=== PATIENT | male | born 1995 | race Two or more races ===

== ENCOUNTER 2023-09-10 13:00 | Emergency (ER) | payer OTHER ==
[~2023-09-10] VITALS: Ht 162.6 cm; Wt 68.0 kg
[2023-09-10 13:21] VITALS: BP 141/81; TEMP 98.6; O2SAT 98
[2023-09-10] MEDS ORDERED: TDAP [DIPH/PERTUSSIS/TET] 0.5 ML VIAL IM ONE ×2 (15:30→15:48)
== END 2023-09-10 16:12 | disposition home or self-care (01) ==
LOC: ER 13:00
DX: S61.311A Laceration without foreign body of left index finger with damage to nail, initial encounter (principal); W26.8XXA Contact with other sharp object(s), not elsewhere classified, initial encounter; Y93.89 Activity, other specified; Y92.89 Other specified places as the place of occurrence of the external cause; Y99.8 Other external cause status
CPT/HCPCS: 99282; A6403; 90715